=== PATIENT | female | born 1950 | race Caucasian/White ===

== ENCOUNTER 2024-08-28 10:45 | Emergency (ER) | payer OTHER ==
[~2024-08-28] VITALS: Ht 167.6 cm; Wt 92.1 kg
[2024-08-28 10:57] VITALS: TEMP 97.6
[2024-08-28] MEDS ORDERED: IBUP-1957 PO (12:14)
[2024-08-28 12:44] VITALS: BP 124/72; O2SAT 98
== END 2024-08-28 12:44 | disposition home or self-care (01) ==
LOC: ER 10:51
DX: M25.562 Pain in left knee (principal); E03.9 Hypothyroidism, unspecified; E11.9 Type 2 diabetes mellitus without complications; E78.5 Hyperlipidemia, unspecified; Z79.1 Long term (current) use of non-steroidal anti-inflammatories (NSAID)
CPT/HCPCS: 73564-TC